=== PATIENT | female | born 1935 | race Caucasian/White ===

== ENCOUNTER → 2016-08-21 | Outpatient (REF) | payer MEDICARE | LOC: M SFHCCLAY 16:44 | PROVIDERS: ATTEND Family Medicine | DX: E03.9 Hypothyroidism, unspecified (principal); E78.00 Pure hypercholesterolemia, unspecified; Z53.8 Procedure and treatment not carried out for other reasons ==

== ENCOUNTER → 2016-08-27 | Outpatient (REF) | payer MEDICARE ==
[2016-08-27 17:39] LABS: ALT/SGPT 23 U/L (12-78); ANION GAP 7 MEQ/L (8-16); BLOOD UREA NITROGEN 15 MG/DL (7-18); CARBON DIOXIDE LEVEL 27 MEQ/L (21-32); CHLORIDE LEVEL 104 MEQ/L (98-107); CHOLESTEROL LEVEL 188 MG/DL (<200); CREATININE FOR GFR 0.81 MG/DL (0.55-1.02); FREE T4 1.06 NG/DL (0.76-1.46); GLOMERULAR FILTRATION RATE > 60.0 (>32); GLUCOSE, FASTING 99 MG/DL (83-110); POTASSIUM SERUM 4.1 MEQ/L (3.5-5.1); SODIUM LEVEL 138 MEQ/L (136-145); TRIGLYCERIDES LEVEL 110 MG/DL (<150)
== END ==
LOC: M SFHCCLAY 11:53
PROVIDERS: ATTEND Family Medicine
DX: E03.9 Hypothyroidism, unspecified (principal); E78.00 Pure hypercholesterolemia, unspecified

== ENCOUNTER → 2016-11-05 | Outpatient (CLI) | payer MEDICARE ==
--- NOTE | 2016-11-05 14:19 | REP ---
RIGHT ANKLE SERIES: Four views. HISTORY: Right ankle injury. FINDINGS: There is prominent plantar calcaneal spurring. Ankle mortise is intact. There is mild tibiotalar spurring. An accessory ossicle is seen adjacent to the medial malleolar. IMPRESSION: Mild tibiotalar spurring and large plantar heel spur. Small accessory ossicle at the medial malleolar tip.
== END ==
LOC: M CLY 13:15
PROVIDERS: ATTEND Nurse Practitioner Family
DX: S99.911A Unspecified injury of right ankle, initial encounter (principal); M25.774 Osteophyte, right foot; M77.31 Calcaneal spur, right foot; W19.XXXA Unspecified fall, initial encounter; Y92.312 Tennis court as the place of occurrence of the external cause; Y93.9 Activity, unspecified; Y99.9 Unspecified external cause status
CPT/HCPCS: 73610; G0463

== ENCOUNTER → 2016-11-26 | Outpatient (CLI) | payer MEDICARE ==
--- NOTE | 2016-11-27 08:35 | REP ---
MRI BRAIN WITHOUT CONTRAST: 11/26/2016. CLINICAL HISTORY: Memory impairment. TECHNIQUE: Sagittal T1 with axial T1, T2, FLAIR, diffusion weighted images and ADC mapping sequences with gradient echo sequences. FINDINGS: Lateral ventricles are symmetric, dilated and proportionate to the diffuse cerebral atrophy. That atrophy is greatest in the temporal lobes but appropriate for age. Third and fourth ventricles also mildly prominent. I do not see intracranial hemorrhage. T2 and FLAIR image sets show some periventricular and scattered deep and subcortical white matter hyperintense signal foci which are nonspecific but may reflect some gliosis or small vessel ischemic change. The dye-white junction differentiation is maintained. Cortical stripe grossly preserved without vascular territory infarct, hemorrhage, mass, mass effect or edema. The diffusion weighted images and the ADC mapping sequences show no evidence of acute ischemia. In posterior fossa, the brainstem was grossly intact. Cerebellum symmetric without any atrophy. No signal abnormality or mass. Basal cisterns are intact. Seventh/eighth cranial nerve complexes and mastoids are normal. There is deviation of the septum towards the left. The mastoids and sinuses are without opacification or air-fluid levels. Corpus callosum is slightly thinned. The optic chiasm is thinned. Infundibulum is normal. Pituitary is not enlarged. There is no cerebellar tonsillar ectopia on the sagittal images. IMPRESSION: 1. Ventriculomegaly with proportionate cerebral atrophy. The lateral and third ventricles are larger than the fourth but no atrophy of the cerebellum is noted. 2. I see no acute infarct, hemorrhage, mass, mass effect or extra-axial fluid collection. 3. Scattered white matter abnormalities consistent with small vessel ischemic changes and/or gliosis. 4. Orbits and contents symmetric and normal. The diffusion images show no restricted water diffusion or acute ischemia. Signed by Sandoval Thurston MD 11/27/2016 08:52 A
== END ==
LOC: M RAD 18:29
PROVIDERS: ATTEND Family Medicine
DX: R41.3 Other amnesia (principal)

== ENCOUNTER → 2018-10-07 | Outpatient (REF) | payer MEDICARE ==
[2018-10-07 11:31] LABS: HEMATOCRIT 38.8 % (36.0-47.0); HEMOGLOBIN 11.9 g/dl (12.0-15.5); MEAN CORPUSCULAR HEMOGLOBIN 26.5 pg (27.0-33.0); MEAN CORPUSCULAR HGB CONC 30.7 g/dl (32.0-36.5); MEAN CORPUSCULAR VOLUME 86.4 fl (80.0-96.0); PLATELET COUNT, AUTOMATED 269 10^3/uL (150-450); RED BLOOD COUNT 4.49 10^6/uL (4.00-5.40); WHITE BLOOD COUNT 6.6 10^3/uL (4.0-10.0)
[2018-10-07 12:15] LABS: ALBUMIN 3.6 GM/DL (3.2-5.2); ALT/SGPT 25 U/L (12-78); BILIRUBIN,TOTAL 0.4 MG/DL (0.2-1.0); BLOOD UREA NITROGEN 15 MG/DL (7-18); CALCIUM LEVEL 9.4 MG/DL (8.8-10.2); CARBON DIOXIDE LEVEL 28 MEQ/L (21-32); CHLORIDE LEVEL 108 MEQ/L (98-107); CHOLESTEROL LEVEL 169 MG/DL (<200); CHOLESTEROL RISK RATIO 2.315 (<5); CREATININE FOR GFR 0.71 MG/DL (0.55-1.30); FREE T4 1.38 NG/DL (0.76-1.46); GLOMERULAR FILTRATION RATE > 60.0 (>32); GLUCOSE, FASTING 95 MG/DL (70-100); HDL CHOLESTEROL 73 MG/DL (>40); LDL CHOLESTEROL 73 MG/DL (<100); NON-HDL-C 96 MG/DL; POTASSIUM SERUM 4.5 MEQ/L (3.5-5.1); SODIUM LEVEL 142 MEQ/L (136-145); THYROID STIMULATING HORMONE 0.106 uIU/ML (0.358-3.740); TOTAL PROTEIN 7.2 GM/DL (6.4-8.2); TRIGLYCERIDES LEVEL 114 MG/DL (<150)
== END ==
LOC: M SFHCCLAY 09:13
PROVIDERS: ATTEND Family Medicine
DX: E78.00 Pure hypercholesterolemia, unspecified (principal); R41.3 Other amnesia; E03.9 Hypothyroidism, unspecified; Z78.0 Asymptomatic menopausal state; Z23 Encounter for immunization
CPT/HCPCS: 80053; 80061; 84439; 84443; 85027; 90670; G0009

== ENCOUNTER → 2020-09-01 | Outpatient (REF) | payer MEDICARE ==
[2020-09-01 16:23] LABS: HEMATOCRIT 42.9 % (36.0-47.0); HEMOGLOBIN 13.2 g/dl (12.0-15.5); MEAN CORPUSCULAR HEMOGLOBIN 27.7 pg (27.0-33.0); MEAN CORPUSCULAR HGB CONC 30.8 g/dl (32.0-36.5); MEAN CORPUSCULAR VOLUME 90.1 fl (80.0-96.0); PLATELET COUNT, AUTOMATED 270 10^3/uL (150-450); RED BLOOD COUNT 4.76 10^6/uL (4.00-5.40); WHITE BLOOD COUNT 7.3 10^3/uL (4.0-10.0)
[2020-09-01 17:01] LABS: ALBUMIN 3.7 GM/DL (3.2-5.2); ALT/SGPT 22 U/L (12-78); BILIRUBIN,TOTAL 0.5 MG/DL (0.2-1.0); BLOOD UREA NITROGEN 13 MG/DL (7-18); CALCIUM LEVEL 9.5 MG/DL (8.8-10.2); CARBON DIOXIDE LEVEL 28 MEQ/L (21-32); CHLORIDE LEVEL 109 MEQ/L (98-107); FREE T4 1.55 NG/DL (0.76-1.46); GLOMERULAR FILTRATION RATE > 60.0 (>32); GLUCOSE, FASTING 86 MG/DL (70-100); POTASSIUM SERUM 4.4 MEQ/L (3.5-5.1); SODIUM LEVEL 142 MEQ/L (136-145); THYROID STIMULATING HORMONE 0.092 uIU/ML (0.358-3.740); TOTAL PROTEIN 7.6 GM/DL (6.4-8.2)
[2020-09-01 17:02] LABS: VITAMIN B12 LEVEL 792 PG/ML (247-911)
== END ==
LOC: M SFHCCLAY 13:04
PROVIDERS: ATTEND Family Medicine
DX: E03.9 Hypothyroidism, unspecified (principal); R41.3 Other amnesia; E53.8 Deficiency of other specified B group vitamins
CPT/HCPCS: 80053; 82607; 84439; 84443; 85027; G0463

== ENCOUNTER → 2020-09-21 | Outpatient (CLI) | payer MEDICARE ==
--- NOTE | 2020-09-21 12:19 | REP ---
INDICATION: MEMORY IMPAIRMENT. COMPARISON: Comparison study November 26, 2016.. TECHNIQUE: Axial and sagittal imaging planes are utilized for T1 and T2-weighted scans. Sequences include spin-echo, fast spin echo, FLAIR, and diffusion weighted sequences. FINDINGS: No bony calvarial lesion is seen. Craniocervical junction and upper cervical cord are normal in appearance. There is no MR evidence of significant paranasal sinus disease. No intraorbital abnormality is seen. There is a generalized volume loss again seen with concordant ventricular enlargement. This is essentially unchanged from the November 26, 2016 prior study. There is no evidence of intracranial hemorrhage. No extra-axial fluid collection is seen. No mass or midline shift is seen. There are small vessel atherosclerotic changes in the periventricular white matter on turbo spin echo T2 and FLAIR images unchanged from 2017. Diffusion-weighted scans show 2 punctate foci of restricted diffusion in the left parietal dye matter and in the periventricular white matter of the left parietal lobe. These were not apparent on previous study. There consistent with foci of acute ischemia. There is no evidence of intracranial hemorrhage. IMPRESSION: There are 2 punctate foci of restricted diffusion indicating acute ischemia on the left, 1 in the left parietal dye matter and the other in the periventricular white matter of the left parietal lobe. Generalized volume loss and small vessel changes are again noted.. <Electronically signed by Andrew Aponte > 09/21/20 [id number]
== END ==
LOC: M PLAIMG 10:49
PROVIDERS: ATTEND Family Medicine
DX: R41.3 Other amnesia (principal)

== ENCOUNTER → 2020-10-17 | Outpatient (REF) | payer MEDICARE ==
[2020-10-18 12:26] LABS: FREE T4 1.26 NG/DL (0.76-1.46); THYROID STIMULATING HORMONE 0.698 uIU/ML (0.358-3.740)
== END ==
LOC: M SFHCCLAY 15:32
PROVIDERS: ATTEND Family Medicine
DX: E03.9 Hypothyroidism, unspecified (principal)

== ENCOUNTER → 2021-09-11 | Outpatient (REF) | payer OTHER ==
[2021-09-11 16:12] LABS: HEMATOCRIT 42.1 % (36.0-47.0); HEMOGLOBIN 13.1 g/dl (12.0-15.5); MEAN CORPUSCULAR HEMOGLOBIN 28.1 pg (27.0-33.0); MEAN CORPUSCULAR HGB CONC 31.1 g/dl (32.0-36.5); MEAN CORPUSCULAR VOLUME 90.3 fl (80.0-96.0); PLATELET COUNT, AUTOMATED 248 10^3/uL (150-450); RED BLOOD COUNT 4.66 10^6/uL (4.00-5.40)
[2021-09-11 16:50] LABS: ALBUMIN 3.6 GM/DL (3.2-5.2); ALT/SGPT 15 U/L (12-78); BILIRUBIN,TOTAL 0.4 MG/DL (0.2-1.0); BLOOD UREA NITROGEN 15 MG/DL (7-18); CALCIUM LEVEL 8.9 MG/DL (8.8-10.2); CARBON DIOXIDE LEVEL 27 MEQ/L (21-32); CHLORIDE LEVEL 107 MEQ/L (98-107); CHOLESTEROL LEVEL 154 MG/DL (<200); CHOLESTEROL RISK RATIO 2.444 (<5); FREE T4 1.29 NG/DL (0.76-1.46); GLOMERULAR FILTRATION RATE > 60.0 (>32); GLUCOSE, FASTING 87 MG/DL (70-100); HDL CHOLESTEROL 63 MG/DL (>40); LDL CHOLESTEROL 67 MG/DL (<100); NON-HDL-C 91 MG/DL; POTASSIUM SERUM 4.5 MEQ/L (3.5-5.1); SODIUM LEVEL 140 MEQ/L (136-145); TOTAL PROTEIN 7.1 GM/DL (6.4-8.2); TRIGLYCERIDES LEVEL 122 MG/DL (<150)
== END ==
LOC: M SFHCCLAY 10:55
PROVIDERS: ATTEND Family Medicine
DX: R30.0 Dysuria (principal); G31.84 Mild cognitive impairment of uncertain or unknown etiology; E78.00 Pure hypercholesterolemia, unspecified; E03.9 Hypothyroidism, unspecified

== ENCOUNTER → 2022-09-11 | Outpatient (REF) | payer OTHER ==
[2022-09-11 18:35] LABS: HEMOGLOBIN 12.8 g/dl (12.0-15.5); MEAN CORPUSCULAR HEMOGLOBIN 28.9 pg (27.0-33.0); MEAN CORPUSCULAR HGB CONC 31.2 g/dl (32.0-36.5); MEAN CORPUSCULAR VOLUME 92.6 fl (80.0-96.0); PLATELET COUNT, AUTOMATED 256 10^3/uL (150-450); RED BLOOD COUNT 4.43 10^6/uL (4.00-5.40); WHITE BLOOD COUNT 7.3 10^3/uL (4.0-10.0)
[2022-09-11 18:40] LABS: FREE T4 0.98 NG/DL (0.89-1.76); THYROID STIMULATING HORMONE 2.644 uIU/ML (0.55-4.78)
[2022-09-11 18:41] LABS: ALBUMIN 3.7 G/DL (3.2-5.2); ALKALINE PHOSPHATASE 96 U/L (46-116); ALT/SGPT < 9 U/L (7.0-40); AST/SGOT 11 U/L (<34); BILIRUBIN,TOTAL 0.4 MG/DL (0.3-1.2); BLOOD UREA NITROGEN 18 MG/DL (9-23); CALCIUM LEVEL 9.3 MG/DL (8.3-10.6); CARBON DIOXIDE LEVEL 29 MMOL/L (20-31); CHLORIDE LEVEL 106 MMOL/L (98-107); CREATININE FOR GFR 0.72 MG/DL (0.55-1.30); GLOMERULAR FILTRATION RATE > 60.0 (>32); GLUCOSE, FASTING 77 MG/DL (74-106); POTASSIUM SERUM 4.9 MMOL/L (3.5-5.1); SODIUM LEVEL 141 MMOL/L (136-145); TOTAL PROTEIN 6.5 G/DL (5.7-8.2)
[2022-09-11 18:42] LABS: VITAMIN B12 LEVEL 1062 PG/ML (211-911)
== END ==
LOC: M SFHCCLAY 12:34
PROVIDERS: ATTEND Family Medicine
DX: G31.84 Mild cognitive impairment of uncertain or unknown etiology (principal); E78.00 Pure hypercholesterolemia, unspecified; E03.9 Hypothyroidism, unspecified; R30.0 Dysuria; R41.3 Other amnesia; E53.8 Deficiency of other specified B group vitamins

== ENCOUNTER → 2022-10-28 | Outpatient (REF) | payer OTHER | LOC: M SFHCCLAY 08:53 | PROVIDERS: ATTEND Physician Assistant | DX: R39.15 Urgency of urination (principal) ==